=== PATIENT | male | born 1945 | race African-American/Black ===

== ENCOUNTER → 2018-01-25 | Emergency (ER) | payer MEDICARE, OTHER ==
[~2018-01-25] VITALS: Ht 177.8 cm; Wt 88.5 kg
[~2018-01-25] MED LIST: CLOP75TA41 PO; GLIP-116 PO; LIS10T PO; METF500T5 PO; NOR10T PO; SIMV-8 PO; VENL75CA78 PO
[2018-01-25 01:01] VITALS: BP 129/80
== END | disposition left against medical advice (07) ==
LOC: ER 00:37
DX: R11.2 Nausea with vomiting, unspecified (principal); Z53.21 Procedure and treatment not carried out due to patient leaving prior to being seen by health care provider
CPT/HCPCS: 93005